=== PATIENT | female | born 2000 | race American Indian/Alaskan Native ===

== ENCOUNTER 2020-03-19 18:38 | Emergency (ER) | payer OTHER ==
--- NOTE | 2020-03-19 21:15 | Emergency Department Report ---
Blank Doc - Documentation Documentation: 20-year-old female that presents with left labia swelling with possible abscess, This initial assessment/diagnostic orders/clinical plan/treatment(s) is/are subject to change based on patient's health status, clinical progression and re- assessment by fellow clinical providers in the ED. Further treatment and workup at subsequent clinical providers discretion. Patient/guardians urged not to elope from the ED as their condition may be serious if not clinically assessed and managed. Initial orders include: 1- Patient sent to [facility] for further evaluation and treatment
[2020-03-19 21:20] VITALS: BP 148/89
[2020-03-19] MEDS ORDERED: LIDOCAINE-MPF (1%) 10 MG/1 ML VIAL 5 ML INFILTRATI ONE (21:55)
[2020-03-19] MEDS ORDERED: AZITHROMYCIN 250 MG TAB PO ONE (21:55)
--- NOTE | 2020-03-19 21:57 | Emergency Department Report ---
ED Female HPI - General Chief complaint: Urogenital-Female Stated complaint: VAGINAL PROBLEMS Time Seen by Provider: 03/19/20 21:14 Source: patient Mode of arrival: Ambulatory Limitations: No Limitations - History of Present Illness Initial comments: 20-year-old female presents to ED with complaint of vaginal pain x3 days. Patient reports she had a "very rough sex" prior to onset of symptoms. She reports some mild swelling to the left labia. She denies any abdominal pain, or vaginal discharge. Patient is concerned about gonorrhea and chlamydia and is requesting prophylaxis. MD Complaint: other -: days(s) (3) Location: labia Severity: mild Consistency: constant Worsens with: other (Sitting) Associated Symptoms: denies: vaginal discharge, vaginal bleeding, abdominal pain - Related Data Previous Rx's Medication Instructions Recorded Last Taken Type Albuterol Sulfate [Proventil Hfa] 2 puff IH Q4HR PRN #1 [email or web address] 03/19/20 Unknown Rx Naproxen [Naprosyn] 500 mg PO BID #20 tablet 03/19/20 Unknown Rx Allergies Allergy/AdvReac Type Severity Reaction Status Date / Time No Known Allergies Allergy Unverified 03/19/20 18:53 ED Review of Systems ROS: Stated complaint: VAGINAL PROBLEMS Other details as noted in HPI Comment: All other systems reviewed and negative Constitutional: denies: chills, fever Gastrointestinal: denies: abdominal pain Genitourinary: as per HPI ED Past Medical Hx - Past Medical History Previous Medical History?: Yes Hx Asthma: Yes Additional medical history: Herpes - Surgical History Past Surgical History?: No - Social History Smoking Status: Never Smoker Substance Use Type: None - Medications Home Medications: Home Medications Medication Instructions Recorded Confirmed Last Taken Type Albuterol Sulfate [Proventil Hfa] 2 puff IH Q4HR PRN #1 [email or web address] 03/19/20 Unknown Rx Naproxen [Naprosyn] 500 mg PO BID #20 tablet 03/19/20 Unknown Rx ED Physical Exam - General Limitations: No Limitations General appearance: alert, in no apparent distress - Head Head exam: Present: atraumatic, normocephalic - Eye Eye exam: Present: normal appearance - ENT ENT exam: Present: mucous membranes moist - Neck Neck exam: Present: normal inspection - Respiratory Respiratory exam: Present: normal lung sounds bilaterally. Absent: respiratory distress - Cardiovascular Cardiovascular Exam: Present: regular rate, normal rhythm - GI/Abdominal GI/Abdominal exam: Present: soft. Absent: distended, tenderness - External exam: Present: other (slight swelling and tenderness to inferior aspect of left inner labia minora; no active bleeding; no fluctuance present; no discharge present) - Extremities Exam Extremities exam: Present: normal inspection - Neurological Exam Neurological exam: Present: alert, oriented X3 - Psychiatric Psychiatric exam: Present: normal affect, normal mood - Skin Skin exam: Present: warm, dry, intact, normal color ED Course Vital Signs 03/19/20 21:14 Temperature 98.2 F Pulse Rate 90 Respiratory 18 Rate Blood Pressure 148/89 O2 Sat by Pulse 99 Oximetry ED Medical Decision Making - Medical Decision Making 20-year-old female with some mild swelling to inferior aspect of the left inner labia minora. This does not appear to be typical of a Bartholin cyst or abscess. This appearance is likely the result of trauma that patient reports she sustained a few days ago secondary to consensual rough sex. I do not believe patient would benefit from an I&D at this time. Sitz baths advised. Patient advised to monitor the area for any increased swelling. Outpatient follow-up advised. Return precautions given. - Differential Diagnosis vaginal trauma, Bartholin cyst Critical care attestation.: If time is entered above; I have spent that time in minutes in the direct care of this critically ill patient, excluding procedure time. ED Disposition Clinical Impression: Vaginal pain, STD exposure Disposition: - TO HOME OR SELFCARE Is pt being admited?: No Condition: Stable Instructions: Sexually Transmitted Diseases (ED), Safe Sex (ED) Prescriptions: Naproxen [Naprosyn] 500 mg PO BID #20 tablet Albuterol Sulfate [Proventil Hfa] 2 puff IH Q4HR PRN #1 [email or web address] PRN Reason: Wheezing Referrals: [facility] [Provider Group] - 3-5 Days [facility] [Provider Group] - 3-5 Days Time of Disposition: 21:56
== END 2020-03-19 22:50 | disposition home or self-care (01) ==
LOC: ED 18:38
DX: R10.2 Pelvic and perineal pain (principal); Z20.2 Contact with and (suspected) exposure to infections with a predominantly sexual mode of transmission; J45.909 Unspecified asthma, uncomplicated
CPT/HCPCS: 96372; 99283; J0696